=== PATIENT | female | born 1965 ===

== ENCOUNTER 2018-01-06 08:00 | Day surgery (SDC) | payer OTHER | END 2018-01-06 13:20 | disposition home or self-care (01) | LOC: AMB-ENDOS 08:00 | DX: R19.4 Change in bowel habit (principal); K64.8 Other hemorrhoids ==

== ENCOUNTER 2018-04-09 04:50 | Inpatient (IN) | payer OTHER ==
[~2018-04-09 04:50] MED LIST: JANUMET 50-5001 EACH PO; TENORMIN25 MG PO; VASOTEC10 MG PO
== END 2018-04-10 10:17 | disposition home or self-care (01) | DRG 743 ==
LOC: CIR.AMB 04:50 → O/R 13:51 → OB/GYN 14:30
PROVIDERS: ADMIT Obstetrics & Gynecology
PROC: 0UT24ZZ Resection of Bilateral Ovaries, Percutaneous Endoscopic Approach (ICD-10-PCS; 2018-04-09)
PROC: 0US94ZZ Reposition Uterus, Percutaneous Endoscopic Approach (ICD-10-PCS; 2018-04-09)
PROC: 0DNW4ZZ Release Peritoneum, Percutaneous Endoscopic Approach (ICD-10-PCS; 2018-04-09)
PROC: 0TJB8ZZ Inspection of Bladder, Via Natural or Artificial Opening Endoscopic (ICD-10-PCS; 2018-04-09)
PROC: 0UT94ZZ Resection of Uterus, Percutaneous Endoscopic Approach (ICD-10-PCS; principal; 2018-04-09 07:00)
DX: N85.01 Benign endometrial hyperplasia (principal); D25.0 Submucous leiomyoma of uterus; N80.0 Endometriosis of uterus; N83.8 Other noninflammatory disorders of ovary, fallopian tube and broad ligament; N73.6 Female pelvic peritoneal adhesions (postinfective); E11.9 Type 2 diabetes mellitus without complications; I11.9 Hypertensive heart disease without heart failure; E66.09 Other obesity due to excess calories